=== PATIENT | female | born 1980 | race Caucasian/White ===

== ENCOUNTER 2022-09-11 19:51 | Outpatient (CLI) | payer MEDICAID | END 2022-09-11 23:59 | disposition critical access hospital (66) | LOC: EMS 19:51 | DX: R07.89 Other chest pain (principal); J18.9 Pneumonia, unspecified organism | CPT/HCPCS: A0425; A0429 ==

== ENCOUNTER 2022-09-11 20:12 | Emergency (ER) | payer MEDICAID ==
[2022-09-11] MEDS ORDERED: SODIUM CHLORIDE 0.9% 1,000 ML IV STA (20:15)
[2022-09-11 20:25] VITALS: BP 153/114
--- NOTE | 2022-09-11 20:52 | XRAY Report ---
PROCEDURE: Chest 1 View X-Ray INDICATIONS: L chest pain TECHNIQUE: One view of the chest was acquired. COMPARISON: None. FINDINGS: Surgical changes and devices: None. Lungs and pleura: Patchy left lower lobe opacity. Mediastinum: Mediastinal contours appear normal. Heart size is normal. Bones and chest wall: No suspicious bony lesions. Overlying soft tissues appear unremarkable. IMPRESSION: Patchy left lower lobe opacity suggestive of pneumonia. Recommend interval follow-up to document reso lution and exclude presence of underlying mass lesion. Reviewed by: Shikha Rodarte MD on 09/11/2022 8:50 PM PDT Approved by: Shikha Rodarte MD on 09/11/2022 8:50 PM PDT Station ID: [id number]
--- NOTE | 2022-09-11 21:35 | ED Physician Documentation ---
History of Present Illness - Stated complaint Stated Complaint: L SIDE PX - Chief complaint Chief Complaint: Back Pain - History obtained from History obtained from: Patient, EMS - Additonal information Additional information: The pt comes to the ED with CC of L rib pain laterally. She has just started treatment for pneumonia, and just picked her abx up today after being prescribed several days ago. She has had a cough, as well as pain with deep breaths. No dyspnea. PD PAST MEDICAL HISTORY - Allergies Allergies/Adverse Reactions: Allergies Allergy/AdvReac Type Severity Reaction Status Date / Time Penicillins AdvReac Unknown Unknown Verified 09/11/22 20:22 PD ED PE NORMAL - Vitals Vital signs reviewed: Yes - General General: Alert and oriented X 3, No acute distress, Well developed/nourished - HEENT HEENT: Atraumatic, PERRL, EOMI, Moist mucous membranes - Neck Neck: Supple, no meningeal sign - Cardiac Cardiac: No murmur, Other (tachycardic rate, regular rhythm) - Respiratory Respiratory: No respiratory distress, Clear bilaterally, Other (splinting with deep breaths.) - Abdomen Abdomen: Normal bowel sounds, Soft, Non tender, Non distended - Derm Derm: Warm and dry - Extremities Extremities: No deformity - Neuro Neuro: Alert and oriented X 3 - Psych Psych: Normal mood, Normal affect Results - Vitals Vitals: Oxygen O2 Source Room air - Rads (name of study) Chest xr Relevant Findings:: Final report received, See rad report (LLL infiltrate) PD Medical Decision Making - ED course Complexity details: reviewed results, re-evaluated patient, considered differential, d/w patient ED course: The pt was tachycardic upon arrival, and stated she thought she might be dehydrated, as she has been living in her friend's car recently, and does not have adequate bathroom facilities, so has not been drinking much. She was given a liter of NS. Her CXR showed a LLL infiltrate. She was feeling better, and we have discussed the need to stay on her abx as directed. We have discussed the usual indications for return. Departure - Departure Disposition: 01 Home, Self Care Clinical Impression: Chest wall pain Pneumonia Qualifiers: Pneumonia type: due to unspecified organism Laterality: left Lung location: lower lobe of lung Qualified Code(s): J18.9 - Pneumonia, unspecified organism Condition: Stable Instructions: ED Chest Pain Costochondritis, ED Pneumonia Adult Comments: Your chest x-ray shows a left lower lung pneumonia but otherwise, no concerning findings. It is not unusual for pneumonia to cause inflammation of adjacent structures and And since your pneumonia is in the left lower lung, it makes sense that your pain is in the same area. You should continue taking your antibiotics as directed. We have rehydrated you with a liter of saline solution in the emergency department today and you should continue to drink plenty of fluids is much as possible. You will most likely have some degree of cough for the next couple of weeks and probably will not feel up to your normal energy level for at least that amount of time as well. Please follow-up with your primary doctor as needed. Discharge Date/Time: 09/11/22 21:51
== END 2022-09-11 21:51 | disposition home or self-care (01) ==
LOC: ED 20:12
DX: J18.9 Pneumonia, unspecified organism (principal); Z59.02 Unsheltered homelessness
CPT/HCPCS: 99283